=== PATIENT | male | born 1980 | race Caucasian/White ===

== ENCOUNTER 2016-11-26 17:17 | Inpatient (IN) | payer BC ==
[2016-11-26] MEDS ORDERED: SODIUM CHLORIDE 0.9% 1,000 ML IV ONE ×2 (17:40→18:32)
[2016-11-26] MEDS ORDERED: ACETAMINOPHEN 325 MG TABLET PO PRN (19:53)
[2016-11-26] MEDS ORDERED: TEMAZEPAM 15 MG CAPSULE PO PRN (19:53)
[2016-11-26] MEDS ORDERED: SODIUM CHLORIDE FLUSH 0.9% 10 ML SYRINGE IVP PRN (19:53)
[2016-11-26] MEDS ORDERED: ONDANSETRON 4 MG/2 ML VIAL IVP PRN (19:53)
[2016-11-26] MEDS ORDERED: HYDROcod/ACETAM 5/325 MG TABLET PO PRN (19:53)
[2016-11-26] MEDS: SODIUM CHLORIDE 0.9% 1,000 ML IV SCH (21:03)
[2016-11-26] MEDS: SODIUM CHLORIDE FLUSH 0.9% 10 ML SYRINGE IVP SCH (21:04)
[2016-11-27] MEDS: IBUPROFEN 600 MG TABLET PO PRN ×2 (00:34→06:55)
[2016-11-27] MEDS: SODIUM CHLORIDE 0.9% 1,000 ML IV SCH ×5 (01:54→22:38)
[2016-11-27] MEDS: SODIUM CHLORIDE FLUSH 0.9% 10 ML SYRINGE IVP SCH ×3 (05:42→22:39)
[2016-11-27] MEDS ORDERED: HYDROcod/ACETAM 10 MG/325 MG TABLET PO PRN (08:25)
[2016-11-27] MEDS: POLYETHYLENE GLYCOL 3350 17 GM PACKET PO SCH (10:08)
[2016-11-27] MEDS: ENOXAPARIN 40 MG/0.4 ML SYRINGE SUBQ SCH (10:09)
[2016-11-27] MEDS: KETOROLAC 10 MG TABLET PO PRN ×2 (12:49→19:03)
[2016-11-27] MEDS: traMADol 50 MG TABLET PO PRN (17:58)
[2016-11-28] MEDS: SODIUM CHLORIDE 0.9% 1,000 ML IV SCH ×5 (01:37→22:04)
[2016-11-28] MEDS: SODIUM CHLORIDE FLUSH 0.9% 10 ML SYRINGE IVP SCH ×3 (05:23→20:08)
[2016-11-28] MEDS: KETOROLAC 10 MG TABLET PO PRN ×2 (08:31→23:57)
[2016-11-28] MEDS: POLYETHYLENE GLYCOL 3350 17 GM PACKET PO SCH (10:19)
[2016-11-28] MEDS: ENOXAPARIN 40 MG/0.4 ML SYRINGE SUBQ SCH ×3 (10:19→14:42)
[2016-11-28] MEDS: traMADol 50 MG TABLET PO PRN (10:19)
[2016-11-28] MEDS ORDERED: LORazepam 0.5 MG TABLET PO PRN (17:14)
[2016-11-29] MEDS: SODIUM CHLORIDE 0.9% 1,000 ML IV SCH ×5 (02:54→23:08)
[2016-11-29] MEDS: SODIUM CHLORIDE FLUSH 0.9% 10 ML SYRINGE IVP SCH ×3 (03:34→18:21)
[2016-11-29] MEDS: KETOROLAC 10 MG TABLET PO PRN (09:50)
[2016-11-29] MEDS: POLYETHYLENE GLYCOL 3350 17 GM PACKET PO SCH (10:33)
[2016-11-29] MEDS: ENOXAPARIN 40 MG/0.4 ML SYRINGE SUBQ SCH (10:34)
[2016-11-30] MEDS: SODIUM CHLORIDE 0.9% 1,000 ML IV SCH ×4 (04:05→18:56)
[2016-11-30] MEDS: SODIUM CHLORIDE FLUSH 0.9% 10 ML SYRINGE IVP SCH ×3 (06:27→22:28)
[2016-11-30] MEDS: ENOXAPARIN 40 MG/0.4 ML SYRINGE SUBQ SCH (11:14)
[2016-11-30] MEDS: POLYETHYLENE GLYCOL 3350 17 GM PACKET PO SCH (11:17)
[2016-12-01] MEDS: SODIUM CHLORIDE 0.9% 1,000 ML IV SCH ×3 (00:07→10:18)
[2016-12-01] MEDS: SODIUM CHLORIDE FLUSH 0.9% 10 ML SYRINGE IVP SCH (06:50)
[2016-12-01] MEDS: POLYETHYLENE GLYCOL 3350 17 GM PACKET PO SCH (08:30)
[2016-12-01] MEDS: ENOXAPARIN 40 MG/0.4 ML SYRINGE SUBQ SCH (08:30)
== END 2016-12-01 11:10 | disposition home or self-care (01) | DRG 566 ==
DX: T79.6XXA Traumatic ischemia of muscle, initial encounter (principal); X50.0XXA Overexertion from strenuous movement or load, initial encounter; R74.0 Nonspecific elevation of levels of transaminase and lactic acid dehydrogenase [LDH]

== ENCOUNTER 2016-12-03 10:38 | Outpatient (CLI) | payer BC | END 2016-12-03 10:39 | disposition home or self-care (01) | DX: M62.82 Rhabdomyolysis (principal) ==

== ENCOUNTER 2016-12-07 19:07 | Outpatient (CLI) | payer BC | END 2016-12-07 19:08 | disposition home or self-care (01) | DX: M62.82 Rhabdomyolysis (principal) ==

== ENCOUNTER 2016-12-24 11:20 | Outpatient (CLI) | payer BC | END 2016-12-24 11:21 | disposition home or self-care (01) | DX: M62.82 Rhabdomyolysis (principal); N45.1 Epididymitis ==

== ENCOUNTER 2017-01-09 16:03 | Emergency (ER) | payer BC | END 2017-01-09 16:56 | disposition home or self-care (01) | DX: N45.1 Epididymitis (principal); B00.9 Herpesviral infection, unspecified; R03.0 Elevated blood-pressure reading, without diagnosis of hypertension ==

== ENCOUNTER 2019-01-13 13:36 | Emergency (ER) | payer BC ==
[2019-01-13] MEDS ORDERED: ONDANSETRON 4 MG/2 ML VIAL IVP STA (14:38)
[2019-01-13] MEDS ORDERED: SODIUM CHLORIDE 0.9% 1,000 ML IV ONE (14:38)
--- NOTE | 2019-01-13 14:42 | ED Physician Documentation ---
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 He denies any cough or congestion. He describe s food that he is eaten in the past day all things that he is eaten previously and he did not feel that any of the food was spoiled. Review of Systems Constitutional: reports: Fever, Chills, Myalgias, Fatigue Eyes: denies: Decreased vision Ears: denies: Ear pain Nose: denies: Rhinorrhea / runny nose, Congestion Throat: denies: Sore throat Cardiac: denies: Chest pain / pressure, Palpitations Respiratory: denies: Dyspnea, Cough GI: reports: Abdominal Pain, Nausea, Vomiting, Diarrhea : denies: Dysuria, Frequency Skin: denies: Rash Musculoskeletal: denies: Neck pain, Back pain, Extremity pain Neurologic: reports: Generalized weakness. denies: Focal weakness, Numbness PD PAST MEDICAL HISTORY - Past Medical History Cardiovascular: None Respiratory: None Endocrine/Autoimmune: None GI: GERD : None, Other HEENT: None Psych: None Musculoskeletal: None Derm: None - Past Surgical History Past Surgical History: No - Present Medications Home Medications: Ambulatory Orders Medication Instructions Recorded Confirmed Ibuprofen [Advil] 400 mg PO Q6H PRN 11/29/16 11/29/16 Doxycycline Hyclate 100 mg PO BID #20 tablet 01/09/17 Ondansetron Odt [Zofran] 4 mg TL Q6H PRN #10 tablet 01/13/19 - Allergies Allergies/Adverse Reactions: Allergies Allergy/AdvReac Type Severity Reaction Status Date / Time No Known Drug Allergies Allergy Verified 03/24/15 11:47 - Social History Does the pt smoke?: No Smoking Status: Never smoker Does the pt drink ETOH?: Yes Does the pt have substance abuse?: No - Immunizations Immunizations are current?: Yes Immunizations: TDAP current <10years - POLST Patient has POLST: No PD ED PE NORMAL - Vitals Vital signs reviewed: Yes (normal ) - General General: Alert and oriented X 3, No acute distress, Well developed/nourished - HEENT HEENT: Atraumatic, PERRL, EOMI, Ears normal, Other (dry mucous membranes ) - Neck Neck: Supple, no meningeal sign, No bony TTP - Cardiac Cardiac: RRR, No murmur - Respiratory Respiratory: No respiratory distress, Clear bilaterally - Abdomen Abdomen: Soft, Non tender - Back Back: No CVA TTP, No spinal TTP - Derm Derm: Normal color, Warm and dry, No rash - Extremities Extremities: No deformity, No edema - Neuro Neuro: Alert and oriented X 3, chief recordist 2-12 intact, No motor deficit, No sensory deficit, Normal speech Eye Opening: Spontaneous Motor: Obeys Commands Verbal: Oriented GCS Score: 15 - Psych Psych: Normal mood, Normal affect Results - Vitals Vitals: Vital Signs - 24 hr 01/13/19 13:46 Temperature 36.9 C Heart Rate 97 Respiratory 18 Rate Blood Pressure 136/74 H O2 Saturation 99 Oxygen O2 Source Room air - Labs Labs: Laboratory Tests 01/13/19 01/13/19 01/13/19 15:20 15:28 15:28 WBC 9.6 RBC 5.14 Hgb 15.2 Hct 45.7 MCV 88.8 MCH 29.6 MCHC 33.3 RDW 13.7 MPV 8.0 Manual Slide Review Indicated Sodium 138 Potassium 4.2 Chloride 105 Carbon Dioxide 24 Anion Gap 9.0 BUN 28 H Creatinine 1.0 Estimated GFR (MDRD) 84 L Glucose 116 H Calcium 8.4 L Total Bilirubin 1.0 AST 23 ALT 22 Alkaline Phosphatase 47 Troponin I Total Protein 7.4 Albumin 4.4 Globulin 3.0 Albumin/Globulin Ratio 1.5 Lipase 32 Urine Color YELLOW Urine Clarity CLEAR Urine pH 6.0 Ur Specific Patriot 1.025 Urine Protein NEGATIVE Urine Glucose (UA) NEGATIVE Urine Ketones NEGATIVE Urine Occult Blood TRACE-INTA Urine Nitrite NEGATIVE Urine Bilirubin NEGATIVE Urine Urobilinogen 0.2 (NORMAL) Ur Leukocyte Esterase NEGATIVE Ur Microscopic Review NOT INDICATED Urine Culture Comments NOT INDICATED 01/13/19 15:28 WBC RBC Hgb Hct MCV MCH MCHC RDW MPV Manual Slide Review Sodium Potassium Chloride Carbon Dioxide Anion Gap BUN Creatinine Estimated GFR (MDRD) Glucose Calcium Total Bilirubin AST ALT Alkaline Phosphatase Troponin I < 0.04 Total Protein Albumin Globulin Albumin/Globulin Ratio Lipase Urine Color Urine Clarity Urine pH Ur Specific Patriot Urine Protein Urine Glucose (UA) Urine Ketones Urine Occult Blood Urine Nitrite Urine Bilirubin Urine Urobilinogen Ur Leukocyte Esterase Ur Microscopic Review Urine Culture Comments Procedures - IVC sono (time) 1435 Bedside IVC sono: IVC measures (cm) (1.09), IVC collapsed c insp (cm) (complete), Dehydration (est >1 liter deficit) PD MEDICAL DECISION MAKING - ED course Complexity details: reviewed results, re-evaluated patient, considered differential, d/w patient ED course: 38-year-old male with acute gastroenteritis is dehydrated on interrogation of the inferior vena cava and he is requesting IV hydration. He is administered normal saline and Zofran. Departure - Departure Disposition: 01 Home, Self Care Clinical Impression: Dehydration, Gastroenteritis Condition: Stable Instructions: ED Food Poison Or Gastroenteritis Follow-Up: SUAD GONZALEZ [Primary Care Provider] - Prescriptions: Ondansetron Odt [Zofran] 4 mg TL Q6H PRN #10 tablet PRN Reason: Nausea / Vomiting Forms: Activity restrictions
[2019-01-13 15:48] LABS: BASOPHILS # (AUTO) 0.1 10^3/uL (0.0-0.1); BASOPHILS % (AUTO) 0.7 %; EOSINOPHILS % (AUTO) 0.2 %; HGB - HEMOGLOBIN 15.2 g/dL (14.0-18.0); LYMPHOCYTES # (AUTO) 0.3 10^3/uL (1.5-3.5); LYMPHOCYTES % (AUTO) 2.7 %; MEAN CORPUSCULAR HEMOGLOBIN 29.6 pg (27.0-31.0); MEAN CORPUSCULAR HGB CONC 33.3 g/dL (32.0-36.0); MEAN CORPUSCULAR VOLUME 88.8 fL (80.0-94.0); MONOCYTES # (AUTO) 0.6 10^3/uL (0.0-1.0); MONOCYTES % (AUTO) 6.2 %; NEUTROPHILS # (AUTO) 8.7 10^3/uL (1.5-6.6); NEUTROPHILS % (AUTO) 90.2 %; RED BLOOD COUNT 5.14 10^6/uL (4.70-6.10); RED CELL DISTRIBUTION WIDTH 13.7 % (12.0-15.0); WHITE BLOOD COUNT 9.6 x10^3/uL (4.8-10.8)
[2019-01-13 15:54] LABS: ALBUMIN 4.4 g/dL (3.2-5.5); ALBUMIN/GLOBULIN RATIO 1.5 (1.0-2.2); CALCIUM 8.4 mg/dL (8.5-10.3); TOTAL PROTEIN 7.4 g/dL (6.7-8.2)
[2019-01-13 15:58] LABS: BILIRUBIN,URINE NEGATIVE (NEGATIVE); GLUCOSE, URINE (UA) NEGATIVE (NEGATIVE); KETONES,URINE (UA) NEGATIVE (NEGATIVE); LEUKOCYTE ESTERASE, URINE NEGATIVE (NEGATIVE); NITRITE,URINE NEGATIVE (NEGATIVE); OCCULT BLOOD,URINE TRACE-INTA (NEGATIVE); PROTEIN,URINE NEGATIVE (NEGATIVE); UROBILINOGEN,URINE 0.2 (NORMAL) E.U./dL (NORMAL)
[2019-01-13 16:00] LABS: CLARITY,URINE CLEAR (CLEAR)
[2019-01-13 16:09] LABS: PLATELET MORPHOLOGY PLATELET CLUMPING (NORMAL); RBC MORPHOLOGY (MULTIPLE) NORMAL APPEARANCE (NORMAL)
[2019-01-13 16:10] LABS: PLATELET ESTIMATE, MANUAL NORMAL (130-450,000) (NORMAL)
[2019-01-13 16:25] VITALS: BP 128/63
== END 2019-01-13 16:27 | disposition home or self-care (01) ==
LOC: ED 13:36
DX: K52.9 Noninfective gastroenteritis and colitis, unspecified (principal); E86.0 Dehydration; K21.9 Gastro-esophageal reflux disease without esophagitis
CPT/HCPCS: 36415; 80053; 81001; 81003; 83690; 84484; 85025; 87086; 96361; 96374; 99283; 99284

== ENCOUNTER 2019-01-23 13:59 | Outpatient (CLI) | payer BC | END 2019-01-23 14:00 | disposition home or self-care (01) | LOC: SC 13:59 | PROVIDERS: ATTEND Nurse Practitioner Family | DX: G47.33 Obstructive sleep apnea (adult) (pediatric) (principal) | CPT/HCPCS: 99212; 99214 ==

== ENCOUNTER → 2019-02-23 | Outpatient (CLI) | payer BC | LOC: SC 19:30 | PROVIDERS: ATTEND Internal Medicine Pulmonary Disease | DX: G47.33 Obstructive sleep apnea (adult) (pediatric) (principal) | CPT/HCPCS: 95806 ==